=== PATIENT | male | born 1995 | race Caucasian/White ===

== ENCOUNTER 2019-03-11 13:32 | Emergency (ER) | payer SELFPAY ==
[~2019-03-11] VITALS: Ht 180.3 cm; Wt 118.4 kg
[2019-03-11 14:16] VITALS: Ht 180.3 cm; Wt 118.4 kg
[2019-03-11 16:14] VITALS: BP 145/79
== END 2019-03-11 16:17 | disposition home or self-care (01) ==
LOC: ED 13:32
DX: L60.0 Ingrowing nail (principal); L98.9 Disorder of the skin and subcutaneous tissue, unspecified; E66.9 Obesity, unspecified; Z68.36 Body mass index [BMI] 36.0-36.9, adult
CPT/HCPCS: J3490